=== PATIENT | male | born 1980 | race Two or more races ===

== ENCOUNTER 2019-10-23 10:38 | Emergency (ER) | payer MEDICAID, OTHER ==
[~2019-10-23] VITALS: Ht 180.3 cm; Wt 83.5 kg
[2019-10-23 10:46] VITALS: BP 151/94
[2019-10-23] MEDS ORDERED: ALBUTEROL SULF 2.5 MG/0.5ML(0.5%) NEB SOLN NEB ONE (11:45)
[2019-10-23] MEDS ORDERED: IPRATROPIUM BROM 0.5 MG/2.5ML INH SOL NEB ONE (11:45)
== END 2019-10-23 12:13 | disposition home or self-care (01) ==
LOC: ER 10:38
DX: J20.9 Acute bronchitis, unspecified (principal)
CPT/HCPCS: 71046; 94640; 99283; J7644

== ENCOUNTER 2020-12-23 14:03 | Emergency (ER) | payer MEDICAID ==
[~2020-12-23] VITALS: Ht 180.3 cm; Wt 81.6 kg
[2020-12-23 14:51] VITALS: BP 153/81
[2020-12-23 15:04] LABS: Urine Bacteria NONE SEEN /hpf (None Seen); Urine Blood Negative /uL (Negative); Urine Mucus FEW (None Seen); Urine Specific Gravity 1.028 (1.001-1.035); Urine WBC 1 /hpf (0 - 3)
== END 2020-12-23 15:25 | disposition home or self-care (01) ==
LOC: ER 14:03
DX: N39.0 Urinary tract infection, site not specified (principal)
CPT/HCPCS: 81001

== ENCOUNTER 2021-07-28 13:35 | Emergency (ER) | payer SELFPAY ==
[~2021-07-28] VITALS: Ht 180.3 cm; Wt 94.3 kg
[2021-07-28 14:40] VITALS: BP 138/75
== END 2021-07-28 14:47 | disposition home or self-care (01) ==
LOC: ER 13:35
DX: H11.32 Conjunctival hemorrhage, left eye (principal)

== ENCOUNTER 2022-03-12 18:12 | Emergency (ER) | payer MEDICAID ==
[~2022-03-12] VITALS: Ht 177.8 cm; Wt 85.6 kg
[2022-03-12 18:48] VITALS: BP 136/89
[2022-03-12] MEDS ORDERED: TETANUS-DIPTH-ACEL PERTUSSIS 0.5ML SYR Tdap IM ONE (20:15)
== END 2022-03-12 20:20 | disposition home or self-care (01) ==
LOC: ER 18:12
DX: S51.011A Laceration without foreign body of right elbow, initial encounter (principal); W11.XXXA Fall on and from ladder, initial encounter; Y93.89 Activity, other specified; Y92.89 Other specified places as the place of occurrence of the external cause; Y99.8 Other external cause status
CPT/HCPCS: 12001; 90471; 90715

== ENCOUNTER 2022-05-03 16:15 | Emergency (ER) | payer MEDICAID ==
[~2022-05-03] VITALS: Ht 182.9 cm; Wt 87.5 kg
[2022-05-03 17:16] LABS: Basophils # (auto) 0.1 10 ^3/uL (0-0.2); Basophils % (auto) 0.9 % (0.0-2.0); Eosinophils # (auto) 0 10 ^3/uL (0-0.8); Eosinophils % (auto) 0.5 % (0.0-7.0); Hematocrit 49.1 % (41.0-53.0); Hemoglobin 16.4 g/dL (13.5-17.5); Lymphocytes % (auto) 35.9 % (10.0-50.0); Mean Corpuscular Hemoglobin 30.7 pg (28.0-32.0); Mean Corpuscular Hgb Conc. 33.3 g/dL (32.0-36.0); Monocytes # (auto) 0.6 10 ^3/uL (0-1.3); Monocytes % (auto) 7.6 % (0.0-12.0); Neutrophils # (auto) 4.6 10 ^3/uL (1.6-8.6); Neutrophils % (auto) 55.1 % (37.0-80.0); Nucleated Red Blood Cells % 0.1 %; Red Blood Cells 5.33 10^6/uL (4.5-5.90); Red Cell Distribution Width 13.1 % (11.8-14.3); White Blood Cell 8.4 10^3/uL (4.4-10.8)
[2022-05-03 17:42] LABS: BUN/Creatinine Ratio 15.4; Potassium 4.1 mmol/L (3.5-5.1)
[2022-05-03 17:45] LABS: Bilirubin, Total 1.2 mg/dL (0.2-1.0)
[2022-05-03 22:22] LABS: INR 0.95 (0.9-1.15)
[2022-05-04] MEDS ORDERED: NITR-87 PO (01:56)
[2022-05-04 02:12] VITALS: BP 131/77
== END 2022-05-04 02:15 | disposition home or self-care (01) ==
LOC: ER 16:15
DX: K42.9 Umbilical hernia without obstruction or gangrene (principal); R30.0 Dysuria
CPT/HCPCS: 36415; 74176; 80053; 83690; 85025; 85610